=== PATIENT | male | born 1940 | race Hispanic/Latino ===

== ENCOUNTER 2022-09-14 01:03 | Inpatient (IN) | payer MEDICARE, BC ==
[2022-09-14] MEDS ORDERED: Furosemide 100 MG/10 ML VIAL ONE (01:25)
[2022-09-14] MEDS ORDERED: Nitroglycerin 2% Ointment 1 INCH/1 GM Packet ONE (01:25)
[2022-09-14] MEDS ORDERED: Nitroglycerin 0.4 MG TAB 1 EACH ONE (01:25)
[2022-09-14 01:32] LABS: #Basophils 0.1 10x3/uL (0.0-0.2); #Eosinphils 0.6 10x3/uL (0.0-0.5); #Monocytes 0.7 10x3/uL (0.0-1.1); #Neutrophils 3.4 10x3/uL (1.5-8.4); %Basophils 0.9 % (0.0-2.0); %Eosinophils 6.5 % (0.0-6.0); %Lymphocytes 44.7 % (18.0-47.0); %Monocytes 8.2 % (0.0-10.0); %Neutrophils 39.5 % (40.0-75.0); Mean Corpuscular HGB CONC 33.8 g/dL (32.0-36.0); Mean Corpuscular Volume 88.9 fl (81.2-95.1); Platelet Count 220 10x3/uL (150-450); RBC Distribution Width 15.3 % (11.5-14.5); Red Blood Cell (RBC) Count 5.33 10x6/uL (4.32-5.72); White Blood Cell (WBC) Count 8.6 10x3/uL (3.5-10.5)
[2022-09-14 01:45] LABS: ALT (SGPT) 31 U/L (8-55); AST (SGOT) 30 U/L (5-34); Albumin 4.4 g/dL (3.4-4.8); Alkaline Phosphatase 98 U/L (40-110); Anion Gap 16 mmol/L (10-20); BUN (Urea Nitrogen) 33 mg/dL (8.4-25.7); Bilirubin, Total 0.8 mg/dL (0.2-1.2); Calc. Creatinine Clearance 0 mL/min (70-130); Calcium 9.7 mg/dL (7.8-10.44); Carbon Dioxide 25 mmol/L (23-31); Chloride 102 mmol/L (98-107); Estimated GFR 30; Globulin 2.3 g/dL (2.4-3.5); Glucose 175 mg/dL (83-110); Potassium 4.2 mmol/L (3.5-5.1); Protein, Total 6.7 g/dL (5.8-8.1); Sodium 139 mmol/L (136-145)
[2022-09-14 02:11] LABS: CKMB 2.3 ng/mL (0-6.6)
[2022-09-14 02:41] LABS: SARS-CoV-2 NAA Rapid Test Not Detected (NotDetected)
[2022-09-14] MEDS ORDERED: Acetaminophen 325 MG TAB PO PRN (02:55)
[2022-09-14] MEDS ORDERED: Ondansetron PF 4 MG/2 ML Vial IVP PRN (02:55)
[2022-09-14] MEDS ORDERED: Dextrose 50% Abboject 50 ML SYRINGE SLOW IVP PRN (02:55)
[2022-09-14] MEDS ORDERED: HumaLOG 300 UNITS/3 ML VIAL SC PRN (02:55)
[2022-09-14] MEDS ORDERED: Guaifenesin DM 100-10/5 ML UDCUP PO PRN (02:55)
[2022-09-14] MEDS ORDERED: Senokot S 8.6-50 MG TAB PO PRN (02:55)
[2022-09-14] MEDS ORDERED: Calcium Carbonate 500 MG ChewTAB PO PRN (02:55)
[2022-09-14] MEDS ORDERED: Dextrose 5% in Water 1,000 ML IV PRN (02:55)
[2022-09-14 05:26] LABS: Troponin I 0.191 ng/mL (< 0.028)
[2022-09-14 05:44] LABS: CKMB 4.9 ng/mL (0-6.6)
[2022-09-14] MEDS ORDERED: glipiZIDE 5 MG TAB PO SCH (07:30)
[2022-09-14] MEDS ORDERED: Carvedilol 25 MG TAB ONE (07:54)
[2022-09-14] MEDS ORDERED: Carvedilol 6.25 MG TAB PO SCH (08:00)
[2022-09-14] MEDS: Carvedilol 25 MG TAB PO SCH ×2 (08:12→17:17)
[2022-09-14] MEDS: Spironolactone 25 MG TAB PO SCH (08:13)
[2022-09-14 08:27] LABS: Troponin I 0.306 ng/mL (< 0.028)
[2022-09-14] MEDS ORDERED: Apixaban 2.5 MG TAB ONE (09:11)
[2022-09-14] MEDS: Apixaban 2.5 MG TAB PO SCH ×2 (10:20→19:58)
[2022-09-14] MEDS: Sacubitril 49 MG/Valsartan 51 MG TABLET PO SCH ×2 (10:20→20:03)
[2022-09-14] MEDS: Lantus 1000 UNITS/10 ML VIAL SC SCH ×2 (10:20→19:59)
[2022-09-14 11:41] LABS: CKMB 5.5 ng/mL (0-6.6)
[2022-09-14] MEDS ORDERED: Furosemide 40 MG/4 ML VIAL ONE (14:08)
[2022-09-14] MEDS: Furosemide 40 MG/4 ML VIAL SLOW IVP SCH (14:17)
[2022-09-14 18:35] VITALS: BMI 25.9
[2022-09-15 05:53] LABS: Anion Gap 12 mmol/L (10-20); BUN (Urea Nitrogen) 32 mg/dL (8.4-25.7); Calc. Creatinine Clearance 32 mL/min (70-130); Calcium 8.9 mg/dL (7.8-10.44); Carbon Dioxide 30 mmol/L (23-31); Chloride 102 mmol/L (98-107); Estimated GFR 40; Glucose 111 mg/dL (83-110); Potassium 3.4 mmol/L (3.5-5.1); Sodium 141 mmol/L (136-145)
[2022-09-15] MEDS: Furosemide 40 MG/4 ML VIAL SLOW IVP SCH ×2 (06:06→17:51)
[2022-09-15 07:48] LABS: Magnesium 1.7 mg/dL (1.6-2.6)
[2022-09-15] MEDS ORDERED: Potassium Chloride 20 MEQ TAB PO SCH (08:00)
[2022-09-15] MEDS ORDERED: Magnesium 2 GM/50 ML(in water) 2 GM in Premix Bag 1 BAG IVPB SCH (08:00)
[2022-09-15] MEDS: Lantus 1000 UNITS/10 ML VIAL SC SCH ×2 (11:16→21:00)
[2022-09-15] MEDS: Spironolactone 25 MG TAB PO SCH (11:16)
[2022-09-15] MEDS: Apixaban 2.5 MG TAB PO SCH ×2 (11:16→20:59)
[2022-09-15] MEDS: Sacubitril 49 MG/Valsartan 51 MG TABLET PO SCH ×2 (11:16→21:04)
[2022-09-15] MEDS: Carvedilol 25 MG TAB PO SCH (11:38)
[2022-09-15] MEDS: HumaLOG 300 UNITS/3 ML VIAL SC PRN (12:59)
[2022-09-15] MEDS: Carvedilol 6.25 MG TAB PO SCH (17:51)
[2022-09-15] MEDS ORDERED: Atorvastatin Calcium 20 MG TAB PO SCH (21:00)
[2022-09-16 04:56] LABS: #Eosinphils 0.5 10x3/uL (0.0-0.5); #Monocytes 0.8 10x3/uL (0.0-1.1); #Neutrophils 4.1 10x3/uL (1.5-8.4); %Basophils 0.5 % (0.0-2.0); %Eosinophils 6.5 % (0.0-6.0); %Monocytes 10.2 % (0.0-10.0); %Neutrophils 49.4 % (40.0-75.0); Hemoglobin 14.5 g/dL (13.5-17.5); Mean Corpuscular HGB CONC 33.9 g/dL (32.0-36.0); Mean Corpuscular Volume 88.4 fl (81.2-95.1); Mean Platelet Volume 10.1 fl (7.4-10.4); Platelet Count 200 10x3/uL (150-450); RBC Distribution Width 14.6 % (11.5-14.5); Red Blood Cell (RBC) Count 4.84 10x6/uL (4.32-5.72); White Blood Cell (WBC) Count 8.2 10x3/uL (3.5-10.5)
[2022-09-16 05:09] LABS: Anion Gap 14 mmol/L (10-20); BUN (Urea Nitrogen) 32 mg/dL (8.4-25.7); Calc. Creatinine Clearance 35 mL/min (70-130); Calcium 9.2 mg/dL (7.8-10.44); Carbon Dioxide 29 mmol/L (23-31); Chloride 101 mmol/L (98-107); Estimated GFR 45; Glucose 61 mg/dL (83-110); Potassium 3.4 mmol/L (3.5-5.1); Sodium 141 mmol/L (136-145)
[2022-09-16] MEDS: Furosemide 40 MG/4 ML VIAL SLOW IVP SCH (06:51)
[2022-09-16] MEDS: Apixaban 2.5 MG TAB PO SCH (09:42)
[2022-09-16] MEDS: Lantus 1000 UNITS/10 ML VIAL SC SCH (09:42)
[2022-09-16] MEDS: Sacubitril 49 MG/Valsartan 51 MG TABLET PO SCH (09:42)
[2022-09-16] MEDS: Spironolactone 25 MG TAB PO SCH (09:43)
[2022-09-16] MEDS: Carvedilol 6.25 MG TAB PO SCH (09:43)
[2022-09-16] MEDS ORDERED: Potassium Chloride 20 MEQ TAB PO SCH (11:00)
[2022-09-16 12:06] VITALS: BP 110/67; TEMP 98.5
[2022-09-16] MEDS: HumaLOG 300 UNITS/3 ML VIAL SC PRN (12:18)
== END 2022-09-16 12:32 | disposition home or self-care (01) | DRG 291 ==
LOC: CSHERS 01:03 → CSHERHOLD 03:24 → CSHTELE 16:30
PROVIDERS: ADMIT Student in an Organized Health Care Education/Training Program; ATTEND Internal Medicine
PROC: 5A09357 Assistance with Respiratory Ventilation, Less than 24 Consecutive Hours, Continuous Positive Airway Pressure (ICD-10-PCS; principal; 2022-09-14)
DX: I13.0 Hypertensive heart and chronic kidney disease with heart failure and stage 1 through stage 4 chronic kidney disease, or unspecified chronic kidney disease (principal); I50.23 Acute on chronic systolic (congestive) heart failure; J96.01 Acute respiratory failure with hypoxia; I42.8 Other cardiomyopathies; E78.5 Hyperlipidemia, unspecified; E11.22 Type 2 diabetes mellitus with diabetic chronic kidney disease; Z20.822 Contact with and (suspected) exposure to COVID-19; N18.32 Chronic kidney disease, stage 3b; E11.65 Type 2 diabetes mellitus with hyperglycemia; E11.51 Type 2 diabetes mellitus with diabetic peripheral angiopathy without gangrene; R77.8 Other specified abnormalities of plasma proteins; Z88.2 Allergy status to sulfonamides; Z79.899 Other long term (current) drug therapy; Z95.810 Presence of automatic (implantable) cardiac defibrillator; Z86.718 Personal history of other venous thrombosis and embolism
CPT/HCPCS: 36415; 36416; 71045; 80048; 80053; 82553; 83735; 83880; 84443; 84484; 85025; 93005; 93306; 94660; 94760; 96374; 96375; J1815; J1940; J3475